=== PATIENT | male | born 1960 | race Caucasian/White ===

== ENCOUNTER 2020-12-23 15:09 | Emergency (ER) | payer BC, SELFPAY ==
[2020-12-23 15:10] VITALS: BP 140/96; PULSE 84; RESP 16; TEMP 36.2; O2SAT 98; BMI 31.3
--- NOTE | 2020-12-23 15:12 | EKG12_ITS ---
Test Reason : CP Blood Pressure : / mmHG Vent. Rate : 082 BPM Atrial Rate : 082 BPM P-R Int : 158 ms QRS Dur : 088 ms QT Int : 352 ms P-R-T Axes : 045 -01 020 degrees QTc Int : 411 ms Normal sinus rhythm Normal ECG Confirmed by SOURAV DARNELL, MARYURI ([id number]), news copy editor JAYSON EDWARDS ([id number]) on 12/26/2020 9:23:06 AM Referred By: HARIS Confirmed By:TIFFANY BENJAMIN MD
[2020-12-23 15:30] LABS: Absolute Lymphocyte Count 1.36 X10^3/uL (0.83-4.51); Absolute Neutrophil Count 3.1 X10^3/uL (2.0-7.7); Basophil# 0.02 X10^3/uL; Basophil% 0.4 % (0-1); Eosinophil# 0.26 X10^3/uL; Hematocrit 43.7 % (40-54); Hemoglobin 15.6 g/dL (13.0-16.5); Lymphocyte # 1.36 X10^3/ul (0.83-4.51); Lymphocyte % 26.1 % (19-41); Mean Corp Hgb Conc 35.7 g/dL (32-36); Mean Corpuscular Hgb 34.7 pg (27.0-32.0); Mean Corpuscular Volume 97.3 fL (80-94); Mean Platelet Vol. 8.7 fl (6.2-12.0); Monocyte# 0.48 X10^3/uL; Monocyte% 9.2 % (0-10); NRBC Flagged by Analyzer 0 % (0-5); Neutrophil # 3.08 X10^3/uL (2.7-7.7); Neutrophil % 59.1 % (47-70); Platelet Count 286 K/mm3 (150-450); RBC Distribution Width CV 12.1 % (11.6-14.6); RBC Distribution Width SD 43.4 fl (35.1-43.9); Red Blood Count 4.49 M/mm3 (4.6-6.2); White Blood Count 5.2 K/mm3 (4.4-11.0)
--- NOTE | 2020-12-23 15:30 | RAD_ITS ---
STUDY: X-RAY CHEST REASON FOR EXAM: Male, 60 years old. LEFT SHOULDER PAIN TECHNIQUE: AP portable COMPARISON: None. FINDINGS: The lungs are clear and expanded. There is no demonstrated pleural abnormality. Normal size heart. Normal mediastinum and loree. Normal visualized pulmonary arteries. Normal visualized aortic arch and descending thoracic aorta. Normal visualized thoracic spine. Normal visualized ribs, clavicles, and shoulders. There is no demonstrated abnormality of the visualized soft tissue structures of the upper abdomen. RAD/Chest 1 View (Portable) IMPRESSION: Normal x-ray examination of the chest. Electronically Signed: Logan Salazar MD at 17:08 EDT , Service support ,
[2020-12-23 15:49] LABS: Anion Gap 6 (5-15); BUN 16 mg/dL (7-18); BUN/Creat Ratio 15.8 RATIO (10-20); Calcium,Total 9.3 mg/dL (8.5-10.1); Chloride 103 mmol/L (98-107); Creatinine, Serum 1.01 mg/dL (0.70-1.30); EST Glomerular Filtration Rate 79 mL/min (>60); Est Glom Filt Rate - Afr Amer 96 mL/min (>60); Estimated Creatinine Clearance 68.43 ml/min; Glucose 107 mg/dL (74-106); Potassium 4.5 mmol/L (3.5-5.1); Sodium Level 139 mmol/L (136-145); Troponin-I HS < 3.0 pg/mL (3.0-78.5)
--- NOTE | 2020-12-23 16:28 | EX.ED.UPPERE ---
HPI History of Present Illness Chief Complaint: Upper Extremity Injury Informant: patient Narrative Narrative: Patient is a 60-year-old male with a past medical history of hypertension who presents to the emergency department for nontraumatic left shoulder pain. He states that this started around 1 PM today. He did not know any aggravating or relieving factors. Describes as a shooting pain which went down his arm. No neck pain or chest pain. No related shortness of breath. He has never had the shoulder pain before. He states he did have pain in his knees before that felt similar. This is been over the past 6 months he had in his left knee which then converted to his right knee. He states that he does do a lot of heavy lifting but does not recall any inciting event. He denies any history of CAD. No history of arthritis that he knows of. He denies any leg swelling or calf pain. He states he otherwise had been feeling well lately. He has not taken anything for symptoms and at time of arrival his pain is starting to resolve. This time he cannot reproduce the pain. PFSH PFS Allergy/AdvReac Type Severity Reaction Status Date / Time No Known Allergies Allergy Verified 12/23/20 15:09 Surgical History (Updated 12/23/20 @ 16:12 by Eunice Foster) History of appendectomy Social History Smoking Status: Never smoker ROS ROS ED Constitutional Constitutional ED: Denies chills or fever(s) Eyes Eyes: Denies change in vision ENT ENT ED: Denies epistaxis or rhinorrhea Cardiovascular Cardiovascular: Denies chest pain or palpitations Respiratory/Chest Respiratory/Chest: Denies cough, dyspnea or dyspnea on exertion Gastrointestinal Gastrointestinal: Denies abdominal pain, diarrhea, nausea or vomiting Genitourinary Genitourinary ED: Denies dysuria, hematuria or urinary frequency Musculoskeletal Musculoskeletal: Reports other Details: Arthralgias ; Denies back pain or neck pain Integumentary Denies rash Neurologic Neurologic: Denies dizziness, headache(s) or weakness EXAM Physical Exam Const Vital Signs: 12/23/20 15:10 Temperature 97.2 F L Temperature Source Temporal Pulse Rate 84 Respiratory Rate 16 Blood Pressure 140/96 H Blood Pressure Mean 110 Pulse Ox 98 Oxygen Delivery Method Room Air Positive well nourished and well developed General Appearance ED: well developed and NAD HEENT Reports normocephalic and head/scalp atraumatic Eyes PERRL and EOMs intact bilaterally Neck supple General: Negative for tenderness Chest Wall inspection of chest normal Resp normal respiratory effort and clear to auscultation bilaterally Auscultation: Negative for rales, rhonchi or wheezes Cardio regular rate, regular rhythm and no murmurs GI normal to inspection, nondistended, normoactive bowel sounds and non-tender Palpation: soft; Negative for guarding or rebound tenderness present Extremity normal to inspection Extremity Narrative: 2+ radial pulse. 5 out of 5 muscle strength throughout. No pain with palpation. No swelling of joints. General Extremety ED: Negative for edema or tenderness General Extremity: Negative for edema Neuro no sensory deficits noted Sensorium / Orientation: alert Motor Exam: strength 5/5 throughout Psych mental status grossly normal Skin no rashes or lesions noted MDM MDM MDM Narrative Medical decision making narrative: Patient presents the ED for left shoulder shooting pain that is nontraumatic. He cannot reproduce it. He states it is feeling better at this time. Work-up was performed to make sure this not cardiac in etiology. His EKG did not show any signs of ischemia. His troponin is negative. His chest x-ray did not reveal any acute cardiopulmonary abnormality. He has a benign physical exam and I cannot reproduce any pain in his muscle strength is 5 out of 5. He is neurovascular intact. We will give a dose of Toradol. Patient's cardiac work-up did not reveal any significant acute abnormality. His troponin is negative. This time I do not feel this is cardiac in etiology. He is improved throughout ED stay. We will have him follow-up with his PCP. He feels any significant chest pain, shortness of breath, worsening pain he come back to the ED for reevaluation. He understands and is agreeable this plan. Will discharge home in stable condition. All questions are answered. Lab Data Labs: Laboratory Results - last 24 hr 12/23/20 12/23/20 15:21 15:21 WBC 5.2 RBC 4.49 L Hgb 15.6 Hct 43.7 MCV 97.3 H MCH 34.7 H MCHC 35.7 RDW Std Deviation 43.4 RDW Coeff of Jacey 12.1 Plt Count 286 MPV 8.7 Immature Gran % (Auto) 0.200 Neut % (Auto) 59.1 Lymph % (Auto) 26.1 [place] % (Auto) 9.2 Eos % (Auto) 5.0 Baso % (Auto) 0.4 Absolute Neuts (auto) 3.1 Absolute Lymphs (auto) 1.36 Nucleated RBC % 0 Sodium 139 Potassium 4.5 Chloride 103 Carbon Dioxide 30.0 Anion Gap 6 BUN 16 Creatinine 1.01 Estim Creat Clear Calc 68.43 Est GFR (MDRD) Af Amer 96 Est GFR (MDRD) Non-Af 79 BUN/Creatinine Ratio 15.8 Glucose 107 H Calcium 9.3 Troponin I High Sens < 3.0 L EKG Initial EKG: Attestation: I personally reviewed and interpreted this EKG as follows: (Rate of 82 bpm and normal sinus rhythm. Normal intervals. Normal axis. No significant ST elevations or depressions. No T wave abnormalities.) Discharge Plan Triage Chief Complaint: Upper Extremity Injury ED Provider: Uriah Mercer Dx/Rx/DC Orders Clinical Impression: Acute shoulder pain Instructions: ED Shoulder Pain, Uncertain Cause Referrals: IESHA COX [Other] Activity Restrictions/Additional Instructions: Please follow-up with your PCP in 3 to 5 days. Develop any worsening symptoms, chest pain or shortness of breath please return back to the emergency department. Disposition Disposition: Home, Self Care Discharge Date/Time: 12/23/20 17:29
[2020-12-23] MEDS: Ketorolac 15 MG/ML Vial IV (16:34)
== END 2020-12-23 17:29 | disposition home or self-care (01) ==
PROVIDERS: Emergency Provider Emergency Medicine
DX: M25.512 Pain in left shoulder (principal)
CPT/HCPCS: 71045; 80048; 84484; 85025; 93005; 96374; 99285; A4216